=== PATIENT | female | born 1955 | race Caucasian/White ===

== ENCOUNTER → 2020-09-27 | Outpatient (CLI) | payer OTHER, MEDICARE ==
[~2020-09-27] MED LIST: ASA81BEC PO; AVAPRO300 MG PO; CYMBALTA60 MG PO; DIAZEPAM 5 MG5 M1 PO; GLUCOSAMINE CH1 EAC1 PO; ISOSORBIDE DINI20 M2 PO; LIPITOR 20 MG T20 M1 PO; MELOXICAM15 MG PO; NITROSTAT0.4 M1 SUBLING; OXYCODONE HCL E10 MG PO; OXYCONTIN60 MG PO; PROAIR HFA8.5 GM INH; TOPROL XL50 MG PO; XARELTO20 MG PO; ZYRTEC10 MG PO
== END ==
LOC: SJCVCIMAG 09:05
PROVIDERS: ATTEND Internal Medicine
DX: I08.1 Rheumatic disorders of both mitral and tricuspid valves (principal); I25.10 Atherosclerotic heart disease of native coronary artery without angina pectoris; J44.9 Chronic obstructive pulmonary disease, unspecified; I10 Essential (primary) hypertension; E11.9 Type 2 diabetes mellitus without complications; E66.01 Morbid (severe) obesity due to excess calories; Z98.61 Coronary angioplasty status

== ENCOUNTER 2020-09-28 08:04 | Observation (INO) | payer OTHER, MEDICARE ==
[~2020-09-28] VITALS: Ht 157.5 cm; Wt 134.7 kg
[2020-09-28 09:03] VITALS: BP 135/61
[2020-09-28] MEDS ORDERED: TOPROL XL50 MG PO (09:30)
[2020-09-28] MEDS ORDERED: AVAPRO300 MG PO (09:30)
[2020-09-28] MEDS ORDERED: ASA81BEC PO (09:31)
[2020-09-28] MEDS ORDERED: MELOXICAM15 MG PO (09:31)
[2020-09-28] MEDS ORDERED: OXYCONTIN60 MG PO (09:32)
[2020-09-28] MEDS ORDERED: ZYRTEC10 MG PO (09:33)
[2020-09-28] MEDS ORDERED: ISOSORBIDE DINI20 M2 PO (09:34)
[2020-09-28] MEDS ORDERED: OXYCODONE HCL E10 MG PO (09:35)
[2020-09-28] MEDS ORDERED: XARELTO20 MG PO (09:36)
[2020-09-28] MEDS ORDERED: CYMBALTA60 MG PO (09:36)
[2020-09-28] MEDS ORDERED: LIPITOR 20 MG T20 M1 PO (09:37)
[2020-09-28] MEDS ORDERED: GLUCOSAMINE CH1 EAC1 PO (09:38)
[2020-09-28] MEDS ORDERED: PROAIR HFA8.5 GM INH (09:39)
[2020-09-28] MEDS ORDERED: DIAZEPAM 5 MG5 M1 PO (09:39)
[2020-09-28] MEDS ORDERED: NITROSTAT0.4 M1 SUBLING (09:40)
--- NOTE | 2020-09-28 13:45 | CATHLAB ---
[facility] [place] [address] INVASIVE PROCEDURE REPORT Name: NEGAR ORELLANA Room #: 200-I [facility] Shikha M.RBrandon#: [id number] Admission: 09/28/20 Attend Phys: Abdias Diaz MD Discharge: Date of : 53 Report #: [id number] THIS REPORT FOR: cc: Gage Richards MD, Martin MD Park, Jin S. MD ~ APPROVED REPORT Study performed: 09/28/2020 10:15:11 Patient Details The patient is a 65 year-old female Event Personnel Abdias Diaz Driver Guide, Grayson Brenner RN RN, Cesar Maynard RTR Monitor, Shelly Freire RTR Scrub Procedures Performed Left Heart Cath w/or w/o Coronaries [id number] [facility] Art Access - L radial artery 51001 Initial Mod Sed Same Phys/QHP Gr5y [id number] 79246 Mod Sed Same Phys/QHP Ea [id number] Indication Dyspnea, Unstable angina , The patient developed dyspnea with walking, her anginal equivalent. Relieved with nitroglycerin tablets. Risk Factors Obesity, Chronic Lung DiseaseHypercholesterolemiaPhysical Activity, Coronary Artery DiseaseHypertension, Diabetes Tobacco History () Previous Procedures/Diagnoses Previous PCI, Previous [place] Procedure Narrative The Left Wrist^ was infiltrated with 1% Lidocaine subcutaneous anesthesia. A TRANSRADIAL SLENDER 6F GLIDESForce-ATH KIT #[id number] sheath was inserted into the Left Radial Artery^. Coronary angiography was performed using coronary diagnostic catheters. The right coronary system was accessed and visualized with a 5FR JR 4 #[id number] catheter. The left coronary system was accessed and visualized with a 5FR JL 3.5 #[id number] catheter. The patient tolerated the procedure well and there were no complications associated with the procedure. There was no hematoma. [facility] [place] [address] INVASIVE PROCEDURE REPORT Name: NEGAR ORELLANA Room #: 200-I [facility] IN [facility].#: [id number] Admission: 09/28/20 Attend Phys: Abdias Diaz MD Discharge: Date of : 53 Report #: [id number] Intraoperative Conscious Sedation Sedation start time: 11:10 Case end Time: 12:12 Fentanyl mcg Versed mg Fluoro Time: 16.30 minutes Dose: DAP 68798.10 cGycm2 4304 mGy Contrast Type and Amount: Omnipaque 155 ml Coronary Angiography The patient's coronary anatomy is right dominant. Diagnostic Cath Left Main The left main artery is a large-caliber vessel, patent with no flow-limiting lesions. LAD The LAD is a moderate-sized caliber vessel, traverses the anterior wall and wraps around the apex. There is mild disease in the proximal segment, 30%. Diagonal 1 This is a moderate-sized caliber vessel, has a high takeoff from the LAD. There is a moderate stenosis in the proximal segment, 40%. Diagonal 2 This is a small to moderate-sized caliber vessel, patent with no flow-limiting lesions. Circumflex This is a moderate-sized caliber vessel, with mild disease in the midsegment, 30%. OM1 This has a high takeoff from the left circumflex artery, patent with no flow-limiting lesions. OM2 There is a moderate-sized caliber vessel, patent with no flow-limiting lesions. OM3 There is a moderate-sized caliber vessel, patent with no flow-limiting lesions. Right Coronary There is a sub-total occlusion in the proximal segment. There appears to be antegrade flow through the obstruction. The distal vessels are filled via collateral circulation from the left coronary artery. Left Ventriculography Left Ventriculography was not performed. Ejection Fraction was 55-60% based off patient's Echocardiogram. Hemodynamics The aortic pressure is 147/75 mmHg with a mean of 105 mmHg. PCI Technique Lesion Percutaneous coronary intervention was [place] [address] INVASIVE PROCEDURE REPORT Name: NEGAR ORELLANA Room #: 200-I [facility] IN ..#: [id number] Admission: 09/28/20 Attend Phys: Abdias Diaz MD Discharge: Date of : 53 Report #: [id number] right coronary artery. The lesion stenosis prior to intervention was 100% with [place] flow. COMMENTS Failed PCI due to inability to cross the total occlusion with a wire. After the obstruction, the RCA is filled via collateral circulation from the left coronary artery. Recommend medical therapy. Conclusion 1. Failed PCI due to inability to cross the total RCA occlusion with a wire. After the obstruction, the RCA is filled via collateral circulation from the left coronary artery. Recommend medical therapy. 2. There is mild to moderate disease in the LAD and first diagonal artery. 3. There is normal LV systolic function. 4. Recommend aggressive risk factor management. <ELECTRONICALLY SIGNED> By: Abdias Diaz MD 09/28/20 1345 1345 1345 Abdias Diaz MD /INF
[2020-09-28 15:00] VITALS: BP 183/773
--- NOTE | 2020-09-28 17:05 | NUR ---
PATIENT ADMITTED TO UNIT AND HAS NOT VOICED ANY COMPLAIN OF PAIN AT THIS TIME. SHE IS ALERT ORIENTED X4. WILL CONT WITH PLAN OF CARE.
[2020-09-28 19:12] VITALS: BP 179/78
[2020-09-28 20:23] VITALS: BP 179/78
--- NOTE | 2020-09-28 20:52 | NUR ---
ASSUMED CARE OF PATIENT AT 1900. PATIENT UPSET AND ADAMANT TO BE DISCARGED. ORDERS RECIEVED FRO DR FRYE. THIS RN GAVE PAPERWORK AND ESCORTED PATIENT OUT VIA WHEELCHAIR. DRIVING HER HOME. SHE WILL FOLLOW UP WITH HER BARREL POLISHER ZACARIAS.
== END 2020-09-28 20:54 | disposition home or self-care (01) ==
LOC: CATH 08:04 → 2N 13:20
PROVIDERS: ADMIT Internal Medicine Cardiovascular Disease; ATTEND Internal Medicine Cardiovascular Disease
DX: I25.110 Atherosclerotic heart disease of native coronary artery with unstable angina pectoris (principal); I10 Essential (primary) hypertension; E11.9 Type 2 diabetes mellitus without complications; E78.00 Pure hypercholesterolemia, unspecified; E66.9 Obesity, unspecified; F17.200 Nicotine dependence, unspecified, uncomplicated; Z68.41 Body mass index [BMI] 40.0-44.9, adult

== ENCOUNTER → 2020-10-11 | Outpatient (CLI) | payer OTHER, MEDICARE | LOC: SJCVC 10:05 | PROVIDERS: ATTEND Internal Medicine | DX: I25.118 Atherosclerotic heart disease of native coronary artery with other forms of angina pectoris (principal); E78.5 Hyperlipidemia, unspecified; I10 Essential (primary) hypertension; E11.9 Type 2 diabetes mellitus without complications; J44.9 Chronic obstructive pulmonary disease, unspecified; G47.33 Obstructive sleep apnea (adult) (pediatric); G89.29 Other chronic pain; F17.210 Nicotine dependence, cigarettes, uncomplicated; Z95.5 Presence of coronary angioplasty implant and graft; Z90.710 Acquired absence of both cervix and uterus; Z98.890 Other specified postprocedural states; Z88.0 Allergy status to penicillin; Z88.2 Allergy status to sulfonamides; Z88.8 Allergy status to other drugs, medicaments and biological substances; Z79.82 Long term (current) use of aspirin; Z79.899 Other long term (current) drug therapy; Z86.718 Personal history of other venous thrombosis and embolism; Z86.711 Personal history of pulmonary embolism; Z82.49 Family history of ischemic heart disease and other diseases of the circulatory system ==

== ENCOUNTER → 2021-04-17 | Outpatient (CLI) | payer OTHER, MEDICARE | LOC: SJCVC 14:08 | PROVIDERS: ATTEND Internal Medicine | DX: R94.31 Abnormal electrocardiogram [ECG] [EKG] (principal); I45.10 Unspecified right bundle-branch block; I25.10 Atherosclerotic heart disease of native coronary artery without angina pectoris; E11.9 Type 2 diabetes mellitus without complications; E78.5 Hyperlipidemia, unspecified; I10 Essential (primary) hypertension; J44.9 Chronic obstructive pulmonary disease, unspecified; G47.33 Obstructive sleep apnea (adult) (pediatric); F17.210 Nicotine dependence, cigarettes, uncomplicated; Z86.718 Personal history of other venous thrombosis and embolism; Z86.711 Personal history of pulmonary embolism; Z82.49 Family history of ischemic heart disease and other diseases of the circulatory system; Z88.0 Allergy status to penicillin; Z88.1 Allergy status to other antibiotic agents; Z79.82 Long term (current) use of aspirin; Z79.899 Other long term (current) drug therapy ==